=== PATIENT | male | born 1935 | race Caucasian/White ===

== ENCOUNTER 2017-03-01 15:31 | Emergency (ER) | payer MEDICARE, OTHER ==
[~2017-03-01] VITALS: Ht 170.2 cm; Wt 80.6 kg
[~2017-03-01 15:31] MED LIST: ASPI81TA2 PO; DOCU-139 PO; FENO145T PO; FERR-67 PO; HYDR-2164 PO; HYDR200T4 PO; LEVO25TA9 PO; LISI-621 PO; MAGN400T26 PO; METH750T89 PO; METO25TA41 PO; MISO200T4 PO; MULT-806 PO; NITR0.4T38 SL; PANT40TA27 PO; POTA10TA14 PO; RANI-197 PO; SUCR1TAB PO
[2017-03-01 15:34] VITALS: Ht 170.2 cm; Wt 80.6 kg
--- OUTSIDE RECORDS SUMMARY | 2017-03-01 15:36 | XMS REPORT | Continuity of Care Document ---
Author Author [facility] Organization [facility] Address Unknown Phone Unavailable Support Name Relationship Address Phone HANNY RAM DO Caregiver [address] [place] [address] Unavailable HANNY RAM DO Caregiver [address] [place] [address] Unavailable AYESHA MAO Next Of Kin [address] [facility] [place], [place] [id number] Insurance Providers Guarantor Huy Burgos Address [address] [place] [address] Email [email or web address] Medicare Policy Number [id number] Subscriber's Name Huy Burgos Relationship 18 Self Effective Date 01 [employer] Medicare Sup Policy Number [id number] Subscriber's Name Huy Burgos Relationship 18 Self Advance Directives Directive Response Recorded Date/Time Advanced Directives Type Living Will DPOA for Healthcare 05/23/14 7:[address]am Dr Padilla Resuscitation Status Full Code, unverified 10/13/16 2:01pm Resuscitation Documents on File Yes 10/15/16 11:49am DPOA for Healthcare Only Yes 10/15/16 11:49am Living Will Yes 10/15/16 11:49am Advanced Directive or Resuscitation Comments FULL CODE 10/15/16 11:49am Advance Directive Consult Information Given 10/15/16 1:50pm Problems Active Problems Medical Problem Onset Date Status CAD (coronary artery disease) Unknown Acute Dysphagia Unknown Acute Gastric mass Unknown Acute Surgical Problem Onset Date Status Status post coronary artery stent placement Unknown Acute Past Problems Medical Problem Onset Date Abrasion, shoulder without infection Unknown Medications Current Home Medications Medication Dose Units Route Directions Days Qty Instructions Start Date Aspirin 81 Mg Tab.chew 81 Mg Oral Daily 10/04/15 Docusate Sodium (Stool Softener) 100 Mg Capsule 100 Mg Oral Daily 03/08/13 Fenofibrate (Tricor) 145 Mg Tablet 145 Mg Oral Give With Breakfast 10/06/15 Ferrous Sulfate (Iron Supplement) 325 Mg Tablet 325 Mg Oral Daily 03/03/16 Hydrochlorothiazide 25 Mg Tablet 25 Mg Oral Daily 02/18/12 Hydroxychloroquine Sulfate 200 Mg Tablet 400 Mg Oral Daily Levothyroxine Sodium 25 Mcg Tablet 25 Mcg Oral Before Breakfast 10/06/15 Lisinopril 20 Mg Tablet 20 Mg Oral Daily 10/04/15 Magnesium Oxide 400 Mg Tablet 400 Mg Oral Daily 05/23/14 Methocarbamol (Robaxin-750) 750 Mg Tablet 750 Mg Oral Bedtime Metoprolol Tartrate 25 Mg Tablet 25 Mg Oral Twice A Day 03/08/13 Misoprostol 200 Mcg Tablet 200 Mcg Oral Twice A Day 03/03/16 Multivitamins (Multivitamin) 1 Tab Tablet 1 Tab Oral Daily Nitroglycerin 0.4 Mg Tab.subl 0.4 Mg Sublingual As Needed Pantoprazole Sodium 40 Mg Tablet.dr 40 Mg Oral Before Meals Twice A Day 02/20/16 Potassium Chloride 10 Meq Tablet.er 10 Meq Oral Daily 02/20/16 Ranitidine Hcl 150 Mg Tablet 150 Mg Oral Bedtime 05/23/14 Sucralfate 1 Gm Tablet 1 G Oral Bedtime 03/03/16 Past Home Medications Medication Directions Ordered Status Acetaminophen (Tylenol) 325 Mg Tablet, Daily Prn 03/08/13 Discontinued Amlodipine Besylate (Norvasc) 10 Mg Tablet, 10 Mg Oral Daily 09/25/10 Discontinued Amlodipine Besylate (Norvasc) 5 Mg Tablet, 5 Mg Oral Daily 06/19/10 Discontinued Amlodipine Besylate (Norvasc) 5 Mg Tablet, 1 Tab Oral Daily 10/28/08 Discontinued Aspirin 325 Mg Tablet, 81 Mg Oral Daily 03/08/13 Discontinued Aspirin , 81 02/18/12 Discontinued Aspirin (Aspir 81) 81 Mg Tablet.dr, 81 Mg Oral Daily 06/19/10 Discontinued Aspirin (Analgesic) 325 Mg Tablet, 1 Tab Oral Daily 10/11/09 Discontinued Carbamazepine (Tegretol) 200 Mg Tablet, 100 Mg Oral Twice A Day 03/08/13 Discontinued Carbamazepine (Tegretol) 100 Mg Tab.chew, 100 Mg Oral Daily 09/25/10 Discontinued Carbamazepine (Tegretol) 200 Mg Tablet, 1 Tab Oral Daily 10/11/09 Discontinued Clopidogrel Bisulfate (Plavix) 75 Mg Tablet, 75 Mg Oral Daily 05/24/14 Discontinued Clopidogrel Bisulfate (Plavix) 75 Mg Tablet, 75 Mg Oral Daily 03/08/13 Discontinued Clopidogrel Bisulfate (Plavix) 75 Mg Tablet, 75 Mg Oral Daily 09/25/10 Discontinued Diclofenac , 75 02/18/12 Discontinued Diclofenac Sodium (Voltaren) 75 Mg Tablet.dr, 75 Mg Oral Twice A Day Discontinued Diclofenac Sodium (Voltaren) 75 Mg Tablet.dr, 1 Tab Oral Twice A Day Discontinued Docusate Sodium (Stool Softener) 50 Mg Capsule, 50 Mg Oral Every 2 Days 09/25 Discontinued Epital , 100 02/18/12 Discontinued Fe Fumarate/Vit C/B12-If/Fa (Foltrin Capsule) 1 Udcap Capsule, 1 Cap Oral Twice A Day 06/19/10 Discontinued Fenofibrate Nanocrystallized (Tricor) 48 Mg Tablet, 72.5 Mg Oral Daily Discontinued Fenofibrate Nanocrystallized (Tricor) 145 Mg Tablet, 0.5 Tab Oral Daily 06/19 Discontinued Hydrochlorothiazide 25 Mg Tablet, 0.5 Tab Oral Daily 10/28/08 Discontinued Levothyroxine Sodium 25 Mcg Tablet, 25 Mcg Oral Daily 03/08/13 Discontinued Lisinopril (Prinivil) 40 Mg Tablet, 1 Tab Oral Daily 09/25/10 Discontinued Metoprolol Succinate 50 Mg Tab.sr.24h, 50 Mg Oral Twice A Day 09/25/10 Discontinued Misoprostol (Cytotec) 200 Mcg Tablet, 1 Tab Oral Twice A Day 09/25/10 Discontinued Multi Vitamin , 1 Oral 06/19/10 Discontinued Tramadol Hcl (Ultram) 50 Mg Tablet, 50 Mg Oral As Needed 09/25/10 Discontinued Tylenol , 09/25/10 Discontinued Social History Social History Problem Response Recorded Date/Time Onset Date Status Reason for Hospitalization EGD 10/15/2016 1:39pm Not Applicable Not Applicable Chewing Tobacco Status No 05/23/2014 7:25am Not Applicable Not Applicable Hx Substance Use No 10/15/2016 11:24am Not Applicable Not Applicable Hx Alcohol Use No 10/15/2016 11:24am Not Applicable Not Applicable Has the pt used tobacco in the last 12 months No 10/15/2016 11:24am Not Applicable Not Applicable Query Response Start Date Stop Date Smoking Status Never smoker Hospital Discharge Instructions Instructions: Care Instructions: I was in the hospital because (patient own words): EGD Discharge Diet: You may resume your usual diet. Discharge Activity: You may resume your usual activity. Follow Up Appointments: Follow up with Dr. Ram as instructed. You can call his office for any questions or concerns. Pending Lab / Results: Will be notified Patient Instructions: Do not drive, operate machinery, drink alcohol, or sign important papers for 24 hours. Expected Signs/Symptoms: You may have some gas discomfort. Notify Physician If: Contact Dr. Ram if you have a fever over 101 degrees, severe abdominal pain, or severe rectal bleeding. During Business Hours:: During office hours, call Dr. Ram's office at [phone]. After Business Hours:: After hours, please call [facility] at [phone] and have the cathead operator page Dr. Ram or the covering physician. Pain Management/Treatment: You should not have significant pain following the procedure. Wound/Incision Care: No wound care required. Condition at time of discharge: Good Plan of Care Discharge Date 10/15/16 2:18pm Prescriptions See Medication Section Functional Status No functional status results. Allergies, Adverse Reactions, Alerts Allergen Type Severity Reaction Status Last Updated ciprofloxacin HCl Allergy Unknown RASH Active 03/03/16 terbinafine HCl Allergy Intermediate RASH Active 03/03/16 Penicillin Allergy Unknown HIVES Active 03/03/16 Sulfa (Sulfonamide Antibiotics) Allergy Unknown Active 03/03/16 Hydrocortisone Allergy Unknown OINTMENT CAUSED RASH Active 03/03/16 Erythromycin base Allergy Unknown Active 03/03/16 Chloramphenicol Allergy Unknown Active 03/03/16 Neomycin Allergy Unknown Active 03/03/16 Bacitracin Allergy Unknown Active 03/03/16 gramicidin D Allergy Unknown Active 03/03/16 Ciprofloxacin Allergy Unknown RASH Active 03/03/16 Metronidazole Allergy Unknown Active 03/03/16 Gabapentin Allergy Unknown Active 03/03/16 Pramoxine Allergy Unknown Active 03/03/16 Polymyxin b Allergy Unknown Active 03/03/16 Cefadroxil Allergy Unknown Active 03/03/16 Celecoxib Allergy Unknown HIVES Active 03/03/16 Immunizations Query Response on File Recorded Date/Time Hx Influenza Vaccination Y 201510/15/16 11:24am Hx Pneumococcal Vaccination Y fall 201310/15/16 11:24am Hx Influenza Vaccination Y 201510/15/16 11:24am Hx Tetanus Diptheria Y 07/14/12 04/04/13 7:27am Vital Signs Acute Vital Signs Vital Response Date/Time Temperature (Fahrenheit) 97.5 deg F (96.8 - 99.1) 10/15/2016 2:05pm Temperature (Calculated Celsius) 36.61527 degrees C (36.0 - 37.3) 10/15/2016 2:05pm Temperature Source Oral 10/15/2016 2:05pm Pulse Rate (adult) 69 bpm (60 - 100) 10/15/2016 2:05pm Respiratory Rate 16 breaths/min (10 - 20) 10/15/2016 2:05pm O2 Sat by Pulse Oximetry 96 % (90 - 100) 10/15/2016 2:05pm Oxygen Delivery Method Room Air 10/15/2016 1:15pm Oxygen Delivery Method Room Air 10/15/2016 2:05pm Oxygen Flow Rate 3.00 L/min 10/15/2016 1:07pm Blood Pressure 168/78 mm Hg 10/15/2016 2:05pm Blood Pressure Source Automatic Cuff 10/15/2016 2:05pm Height (Feet) 5 feet 10/15/2016 11:09am Height (Inches) 8.00 inches 10/15/2016 11:09am Weight (Kilograms) 81.500 kg 10/15/2016 11:09am Body Mass Index (BMI) 27.3 10/15/2016 11:09am Results No known relevant diagnostic tests, laboratory data and/or discharge summary. Procedures Procedure Status Date Provider(s) Esophagogastroduodenoscopy (EGD) with closed biopsy Completed 10/15/16 HANNY RAM DO Encounters Encounter Location Arrival/Admit Date Discharge/Depart Date Attending Provider Departed [facility] 10/15/16 10:57am 10/15/16 2 :18pm HANNY RAM DO
--- OUTSIDE RECORDS SUMMARY | 2017-03-01 15:36 | XMS REPORT | Continuity of Care Document ---
Author Author [facility] Organization [facility] Address Unknown Phone Unavailable Allergies Active Description Code Type Severity Reaction Onset Reported/Identified Relationship to Patient Clinical Status Yes NKDA N/A N/A Yes CeleBREX NKMA N/A N/A 11/05/2014 Yes Chloromycetin NKMA N/A N/A 11/05/2014 Yes ciprofloxacin NKMA N/A [id number] 11/05/2014 Yes doxycycline NKMA N/A N/A 11/05/2014 Yes Duricef NKMA N/A N/A 11/05/2014 Yes erythromycin NKMA N/A N/A 11/05/2014 Yes hydrocortisone NKMA N/A N/A 11/05/2014 Yes LamISIL Topical NKMA N/A N/A 11/05/2014 Yes metronidazole NKMA N/A N/A 11/05/2014 Yes neomycin topical NKMA N/A N/A 11/05/2014 Yes penicillin NKMA N/A N/A 11/05/2014 Yes pramoxine topical NKMA N/A N/A 11/05/2014 Yes sulfamethoxazole-trimethoprim NKMA N/A N/A 11/05/2014 Yes CeleBREX NKMA N/A N/A 11/05/2014 Yes Chloromycetin NKMA N/A N/A 11/05/2014 Yes ciprofloxacin NKMA N/A [id number] 11/05/2014 Yes doxycycline NKMA N/A N/A 11/05/2014 Yes Duricef NKMA N/A N/A 11/05/2014 Yes erythromycin NKMA N/A N/A 11/05/2014 Yes hydrocortisone NKMA N/A N/A 11/05/2014 Yes LamISIL Topical NKMA N/A N/A 11/05/2014 Yes metronidazole NKMA N/A N/A 11/05/2014 Yes neomycin topical NKMA N/A N/A 11/05/2014 Yes penicillin NKMA N/A N/A 11/05/2014 Yes pramoxine topical NKMA N/A N/A 11/05/2014 Yes sulfamethoxazole-trimethoprim NKMA N/A N/A 11/05/2014 Yes ethyl chloride topical Other N/A [id number] 11/14/2014 Yes gabapentin NKMA N/A rash 11/14/2014 Yes ethyl chloride topical 403 N/A [id number] 11/14/2014 Yes gabapentin NKMA N/A rash 11/14/2014 Yes BACTRIM 11456 2 Skin Rashes/Hives 05/08/2016 Yes CELEBREX 82077 2 Skin Rashes/Hives 05/08/2016 Yes CHLOROMYCETIN 66499 2 Skin Rashes/Hives 05/08/2016 Yes DURICEF 46677 2 Skin Rashes/Hives 05/08/2016 Yes ERYTHROMYCIN 19164 2 Skin Rashes/Hives 05/08/2016 Yes ETHYFENEDIAMINE NOCHK 2 Skin Rashes/Hives 05/08/2016 Yes ETHYLENEDIAMINE 37208 2 Skin Rashes/Hives 05/08/2016 Yes GABAPENTIN 21822 2 Skin Rashes/Hives 05/08/2016 Yes HYDROCORTISONE NOCHK 2 Skin Rashes/Hives 05/08/2016 Yes LAMISIL 13011 2 Skin Rashes/Hives 05/08/2016 Yes METRONIDAZOLE HCL 49424 2 Skin Rashes/Hives 05/08/2016 Yes NEOMYCIN NOCHK 2 Skin Rashes/Hives 05/08/2016 Yes [id number] FORMALDEHYDE RESIN NOCHK 2 Skin Rashes/ Hives 05/08/2016 Yes P-tert Butylphenol NOCHK 2 Skin Rashes/Hives 05/08/2016 Yes PENICILLIN 22206 2 Skin Rashes/Hives 05/08/2016 Yes PRAMOXINE W/HC 57961 2 Skin Rashes/Hives 05/08/2016 Medications Medication Packaging Start Date Stop Date Route Dosage Sig [id number] 03/23/2015 ORAL daily SODIUM CHLORIDE 0.9% 10ML FLUSH SYRINGE SYR 05/10/20162016 IVP BID&0900,2100 LIDOCAINE 5% PATCH PAT 05/10/2016 05/10/2017 TD Q12H&0900, 2100 POLYETHYLENE GLYCOL 17GM PKT PKT 05/10/2016 05/10/2017 PO QD& 0900 DOCUSATE SODIUM 100MG CAPSULE CAP 05/10/2016 05/10/2017 PO BID& 0900,2100 SODIUM CHLORIDE PF 0.9% 10ML INJ VL 05/10/2016 05/10/2016 IVP ONCE LACTATED RINGERS 1000 ML IV SOLN BAG 05/10/2016 05/10/2016 IV ONCE SODIUM CHLORIDE 0.9% 1000ML IRRIG SOLN EA 05/10/20162015 IRR ONCE ceFAZolin 1GM VIAL VL 05/10/2016 05/10/2016 IVP ONCE BUPIVACAINE W/ EPI 0.25% INJ [10 ML] VL 05/10/2016 05/10/2016 ID ONCE VANCOMYCIN 1GM INJ VL 05/10/2016 05/10/2016 PB Q12H&0900,2100 LACTATED RINGERS 1000 ML IV SOLN BAG 05/10/2016 05/10/2016 IV PRE-OP ceFAZolin 1GM VIAL VL 05/10/2016 05/10/2016 IV PRE-OP VANCOMYCIN 1GM INJ VL 05/10/2016 05/10/2016 IV PRE-OP fentaNYL 100 MCG/2ML INJ AMP 05/10/2016 05/10/2016 IV PRE-OP fentaNYL 100 MCG/2ML INJ AMP 05/10/2016 05/10/2016 IV ONCE fentaNYL 250 MCG/5ML INJ AMP 05/10/2016 05/10/2016 IV ONCE * Ready to Reconcile EA 05/10/2016 05/10/2016 PO ASDIR SUCCINYLCHOLINE 100MG/5ML SYRINGE [COMPOUND] DOS 05/10/2016 IVP ONCE EPHEDRINE 20MG/2ML SYRINGE [COMPOUND] DOS 05/10/20162015 IVP ONCE LIDOCAINE 2% SYRINGE [100MG/5ML] SYR 05/10/2016 05/10/2016 IVP ONCE DEXAMETHASONE 10MG/1ML VIAL VL 05/10/2016 05/10/2016 IVP ONCE PROPOFOL 200MG/20ML INJ VL 05/10/2016 05/10/2016 IVP ONCE ONDANSETRON 4MG/2ML INJ VL 05/10/2016 05/10/2016 IVP ONCE ROCURONIUM 50MG/5ML INJ VL 05/10/2016 05/10/2016 IVP ONCE hydroMORPHONE 2MG/1ML INJ ML 05/10/2016 05/10/2016 IV ONCE hydroMORPHONE 2MG/1ML INJ ML 05/10/2016 05/10/2016 IV POST-OP hydroMORPHONE 2MG/1ML INJ ML 05/10/2016 05/10/2016 IV ONCE *CLOBETASOL 0.05% TOPICAL SOLUTION 05/10/2016 05/10/2017 TOP QD&0900 *FENOFIBRATE 145MG TABLET TAB 05/10/2016 05/11/2016 PO QD&0900 *HYDROXYCHLOROQUINE 200MG TABLET TAB 05/10/2016 05/10/2017 PO BID&0900,2100 *LEVOTHYROXINE 25 MCG TABLET TAB 05/10/2016 05/10/2017 PO QD& 0900 *METOPROLOL TARTRATE 25MG TABLET TAB 05/10/2016 05/10/2017 PO QD&0900 *amLODIPine 10MG TABLET TAB 05/10/2016 05/10/2017 PO QD&0900 *NITROGLYCERIN SL 0.4MG TABLET TAB 05/10/2016 05/10/2017 SL PRN *SUCRALFATE 1GM TABLET TAB 05/10/2016 05/10/2017 PO HS&2200 *PANTOPRAZOLE 40MG TABLET TAB 05/10/2016 05/10/2017 PO BID&0900 ,2100 *MISOPROSTOL 200MCG TABLET TAB 05/10/2016 05/10/2017 PO BID& 0900,2100 *LISINOPRIL 20MG TABLET TAB 05/10/2016 05/10/2017 PO QD&0900 *carBAMazepine 200MG TABLET TAB 05/10/2016 05/10/2017 PO QD& 0900 SODIUM CHLORIDE 0.9% W/ KCL 20MEQ 1000ML IV SOLN BAG 05/10/2016 05/12/2016 IV 100ML/HR LORazepam 0.5MG TABLET TAB 05/10/2016 05/10/2017 PO Q4HPRN HYDROcodone/ACETAMINOPHEN 5-325 MG TABLET TAB 05/10/20162016 PO T9QHTGY CYCLOBENZAPRINE 10 MG TABLET TAB 05/10/2016 05/10/2017 PO K9ZRNBN MAGNESIUM HYDROXIDE 2400MG/30ML SUSP EA 05/10/2016 05/10/2017 PO PRN BISACODYL 10MG SUPPOS. SUP 05/10/2016 05/10/2017 OK* PRN BISACODYL 5MG TABLET TAB 05/10/2016 05/10/2017 PO PRN MORPHINE 30 MG / 30 ML PRESBYTERIAN CLERGY SYRINGE SYR 05/10/2016 05/12/2016 IV PRN METOCLOPRAMIDE 10MG/2ML INJ VL 05/10/2016 05/10/2017 IVP I6TMRGMC SODIUM CHLORIDE 0.9% 10ML FLUSH SYRINGE SYR 05/10/20162016 IVP PRN SODIUM CHLORIDE 0.9% 5ML FLUSH SYRINGE SYR 05/10/20162016 IVP PRN CEPACOL (BENZOCAINE/MENTHOL) LOZENGE MING 05/10/2016 05/10/2017 BC Q4HPRN TEMAZEPAM 15MG CAPSULE CAP 05/10/2016 05/10/2017 PO HSPRNI& 2200 FAMOTIDINE 20 MG TABLET TAB 05/10/2016 05/10/2017 PO BIDPRNN diphenhydrAMINE 50MG/1ML INJ VL 05/10/2016 05/10/2017 IVP Q6HPRN ACETAMINOPHEN 325MG TABLET TAB 05/10/2016 05/10/2017 PO Q4HPRN PHENOL 1.4% THROAT SPRAY [118ML] EA 05/10/2016 05/10/2017 PO PRN VANCOMYCIN 1GM INJ VL 05/10/2016 05/11/2016 PB Q12H&0000,1200 METOCLOPRAMIDE 10MG TABLET TAB 05/10/2016 05/10/2016 PO Q6H& 0000,0600,1200,1800 METOCLOPRAMIDE 10MG TABLET TAB 05/11/2016 05/11/2016 PO ONCE METOCLOPRAMIDE 10MG TABLET TAB 05/12/2016 05/12/2017 PO [id number] *FENOFIBRATE 145MG TABLET TAB 06/07/2016 05/10/2016 PO QD&0900 *HYDROXYCHLOROQUINE 200MG TABLET TAB 06/07/2016 05/10/2016 PO BID&0900,2100 *LEVOTHYROXINE 25 MCG TABLET TAB 06/07/2016 05/10/2016 PO QD& 0900 *METOPROLOL TARTRATE 25MG TABLET TAB 06/07/2016 05/10/2016 PO QD&0900 *amLODIPine 10MG TABLET TAB 06/07/2016 05/10/2016 PO QD&0900 *MAGNESIUM OXIDE 400MG TABLET TAB 06/07/2016 06/07/2017 PO QD& 0900 *MULTIVITAMIN TABLET TAB 06/07/2016 06/07/2017 PO QD&0900 *RANITIDINE 150MG TABLET TAB 06/07/2016 05/10/2016 PO QD&0900 *POTASSIUM CHLORIDE 10MEQ TABLET TAB 06/07/2016 06/07/2017 PO QD&0900 *MISOPROSTOL 200MCG TABLET TAB 06/07/2016 05/10/2016 PO BID& 0900,2100 *LISINOPRIL 20MG TABLET TAB 06/07/2016 05/10/2016 PO QD&0900 *HYDROCHLOROTHIAZIDE 25MG TABLET TAB 06/07/2016 06/07/2017 PO QD&0900 *FERROUS SULFATE 325MG TABLET TAB 06/07/2016 06/07/2017 PO QD& 0900 *CLOPIDOGREL 75MG TABLET TAB 06/07/2016 06/07/2017 PO QD&0900 *carBAMazepine 100MG TABLET TAB 06/07/2016 05/10/2016 PO QD& 0900 *ASPIRIN EC 81MG TABLET TAB 06/07/2016 06/07/2017 PO QD&0900 *OTC/HERBAL SUPPLEMENTS EA 06/07/2016 05/10/2016 PO ASDIR * DONT RECONCILE--CHANGE PENDING EA 06/07/2016 05/10/2016 PO PRN *NITROGLYCERIN SL 0.4MG TABLET TAB 06/07/2016 05/10/2016 SL PRN *CLOBETASOL 0.05% TOPICAL SOLUTION 06/09/2016 05/10/2016 TOP QD&0900 *PANTOPRAZOLE 40MG TABLET TAB 06/09/2016 05/10/2016 PO BID&0900 ,2100 *carBAMazepine 200MG TABLET TAB 06/09/2016 05/10/2016 PO QD& 0900 *DOCUSATE SODIUM 100MG CAPSULE CAP 06/09/2016 06/09/2017 PO ASDIR *SUCRALFATE 1GM TABLET TAB 06/09/2016 05/10/2016 PO HS&2200 Problems Date Dx Coded Attending Type Code Diagnosis Diagnosed By 05/19/2013 Sourav Recinos MD Admitting 789.39 ABD/PELV SWELL-SITE NEC 05/19/2013 Sourav Recinos MD Final 996.62 INFECT D/T VASC DEVICE 05/19/2013 Sourav Recinos MD Final 998.6 PERSIST POSTOP FISTULA 05/19/2013 Sourav Recinos MD External E879.0 ABN RXN-CARDIAC CATH 08/19/2013 Sourav Recinos MD Final 447.0 ACQUIRED AV FISTULA 08/19/2013 Sourav Recinos MD Admitting 729.5 PAIN IN LIMB 08/19/2013 Sourav Recinos MD Admitting 782.3 EDEMA 08/19/2013 Sourav Recinos MD Admitting 789.30 ABD/PELV SWELL-SITE NOS 11/09/2014 Claudia King 719.45 PAIN IN JOINT INVOLVING PELVIC REGION AND THIGH 11/09/2014 Claudia King Reason 873.0 OPEN WOUND OF SCALP, WITHOUT MENTION OF COMPLICATION 11/09/2014 Claudia King E885.9 FALL FROM OTHER SLIPPING, TRIPPING, OR STUMBLING 11/09/2014 Claudia King V58.63 Long-Term (Current) Use of Antiplatelets/ Antithrombotics 11/09/2014 Claudia King Reason 873.0 OPEN WOUND OF SCALP, WITHOUT MENTION OF COMPLICATION 05/12/2016 ROXY GONCALVES D62 Acute posthemorrhagic anemia 05/12/2016 ROXY GONCALVES E03.9 Hypothyroidism, unspecified 05/12/2016 ROXY GONCALVES E78.5 Hyperlipidemia, unspecified 05/12/2016 ROXY GONCALVES G47.33 Obstructive sleep apnea (adult) (pediatr 05/12/2016 ROXY GONCALVES I12.9 Hypertensive chronic kidney disease with 05/12/2016 ROXY GONCALVES I25.10 Atherosclerotic heart disease of [place] 05/12/2016 ROXY GONCALVES I44.0 Atrioventricular block, first degree 05/12/2016 ROXY GONCALVES K21.9 Gastro-esophageal reflux disease without 05/12/2016 ROXY GONCALVES M25.78 Osteophyte, vertebrae 05/12/2016 ROXY GONCALVES M48.06 Spinal stenosis, lumbar region 05/12/2016 ROXY GONCALVES M53.2X6 Spinal instabilities, lumbar region 05/12/2016 ROXY GONCALVES N18.3 Chronic kidney disease, stage 3 (moderat 05/12/2016 ROXY GONCALVES Z79.01 residential (current) use of anticoagulant Procedures Code [place] [address] Simple repair of superficial wounds of scalp, neck, axillae, external genit 11/05/2014 [id number] Release Lumbar Nerve, Open Approach ROXY GONCALVES 05/10/2016 [id number] Fusion of Lumbar Vertebral Joint, Organ Pipe Finisher ROXY GONCALVES 05/10/2016 [id number] Inspection of Lumbar Vertebral Joint, Op ROXY GONCALVES 05/10/2016 [id number] Removal of Internal Fixation Device from ROXY GONCALVES 05/10/2016 Results Encounters ACCT No. Visit Date/Time Discharge Status Pt. Type Provider Facility Loc./Unit Complaint [id number] 08/19/2013 07:20:00 2012 23:59:59 CLS Outpatient Sourav Recinos MD [facility] [id number] 05/19/2013 09:45:00 2012 23:59:59 CLS Outpatient Sourav Recinos MD [facility]
--- NOTE | 2017-03-01 15:47 | ERPDOC ---
Departure Disposition Decision Date: Mar 01, 2017 Disposition Decision Time: 17:22 Disposition: 01 DISCHARGED HOME, SELF-CARE Impression Impression Impression: Primary Impression: Diarrhea Diarrhea type: unspecified type Qualified Codes: R19.7 - Diarrhea, unspecified Severity: Moderate Condition: Stable Seen By: Physician only Referrals: HANNY RAM DO (Family) Patient Instructions: Acute Diarrhea (ED) Problems/Meds/Labs Reviewed?: Yes Medications reviewed and manag: Yes Additional Instructions: If continuing to have problems on Friday follow-up with Dr. Ram, otherwise continue to use the antidiarrheals at home, may take up to 6 pills in a 24-hour period Follow up care ordered?: Yes Mental Status: Alert, Oriented HPI - Abdominal Pain General Chief Complaint: Nausea,Vomiting,Diarrhea Stated Complaint: DIARRHEA Time Seen by Provider: 15:46 Source: patient, family History/Exam Limitations: no limitations HPI - Abdominal Pain Initial Comments Patient is an 82-year-old male presents emergency room for evaluation of diarrhea, weakness. Patient started having diarrhea 2 days ago, having no nausea no abdominal pain still eating, significant diarrhea has taken for antidiarrheal pills in the last 2 days, last dose at 8:00 this morning. Patient 's had continued diarrhea today so decided present to the ER with increasing weakness. Occurred At: home Onset: Gradual, Getting worse Duration: other (2 days) Allergies: Coded Allergies: terbinafine HCl (Verified Allergy, Intermediate, RASH, 03/01/17) TOPICAL CREAM Penicillins (Verified Allergy, Unknown, HIVES, 03/01/17) Sulfa (Sulfonamide Antibiotics) (Verified Allergy, Unknown, 03/01/17) bacitracin (Verified Allergy, Unknown, 03/01/17) cefadroxil (Verified Allergy, Unknown, 03/01/17) celecoxib (Verified Allergy, Unknown, HIVES, 03/01/17) chloramphenicol (Verified Allergy, Unknown, 03/01/17) ciprofloxacin (Verified Allergy, Unknown, RASH, 03/01/17) ciprofloxacin HCl (Verified Allergy, Unknown, RASH, 03/01/17) doxycycline (Verified Allergy, Unknown, CHEST PAIN, 03/01/17) erythromycin base (Verified Allergy, Unknown, 03/01/17) gabapentin (Verified Allergy, Unknown, 03/01/17) gramicidin D (Verified Allergy, Unknown, 03/01/17) hydrocortisone (Verified Allergy, Unknown, OINTMENT CAUSED RASH, 03/01/17) metronidazole (Verified Allergy, Unknown, 03/01/17) neomycin (Verified Allergy, Unknown, 03/01/17) polymyxin B (Verified Allergy, Unknown, 03/01/17) pramoxine (Verified Allergy, Unknown, 03/01/17) sulfamethoxazole (Verified Allergy, Unknown, 03/01/17) trimethoprim (Verified Allergy, Unknown, 03/01/17) Uncoded Allergies: METROMIDOZOLIE (Allergy, Unknown, 03/01/17) Past History Past Medical History Metabolic: cancer, hypertension, hypothyroidism Cardiac: CAD Musculoskeletal: back pain Surgical History General: other Cardiac: cardiac stent Family History Family PMH: FOUND: other Vaccines Hx Influenza Vaccination: Yes (2015) Hx Pneumococcal Vaccination: Yes (FALL 2013) Hx Tetanus Diptheria: Yes (07/14/12) Review of Systems Constitutional Constitutional: weakness, DENIES: appetite decrease, chills, dizziness, fever Eyes Vision: DENIES: double vision, loss of visual abebe ENMT Sinuses: DENIES: congestion, rhinorrhea Mouth/Throat: DENIES: scratchy throat, sore throat Cardiovascular Cardiac: DENIES: chest pain, dyspnea on exertion Pulmonary Respiratory: DENIES: cough, dyspnea, sputum, tachypnea GI Upper Abdomen: DENIES: nausea, pain, vomiting Lower Abdomen: diarrhea, DENIES: constipation, pain General: DENIES: urgency Musculoskeletal General: DENIES: cramps, pain, weakness Integumentary Skin: DENIES: color change, itching, rash Endocrine Endocrine: DENIES: heat/cold intolerance Hematologic/Lymphatic Hematologic/Lymphatic: DENIES: anemia Physical Exam General General Nourishment: well nourished, well developed General Body Habitus: well groomed Vitals and Pain Weight: Kilograms: 80.600 Height (feet): 5 Height (inches): 7.00 Triage Pain Scale: RN VS reviewed by Provider: Yes Eyes (brief) Eyes Brief: found: EOMI ENMT (brief) ENMT Brief: FOUND: mucosa moist, normal dentition, NOT FOUND: nasal erythema, pharnyx erythema, tonsillar deviation Neck (brief) Neck: NOT FOUND: adenopathy, spasm, tenderness Respiratory (brief) Respiratory: FOUND: clear all abebe, equal bilaterally, NOT FOUND: rales, wheezes Cardiovascular (brief) Cardiac: FOUND: regular rate, regular rhythm Capillary Refill: <2 sec Abdomen (brief) Abdominal Brief: FOUND: bowel normo active x4, soft, NOT FOUND: distended, tender Lymphatic (brief) Lymphatic Brief: NOT FOUND: adenopathy Musculoskeletal (brief) Musculoskeletal Brief: NOT FOUND: spasm, tenderness Integumentary (brief) Integumentary Brief: FOUND: dry, pink, warm, NOT FOUND: rash Neurologic (brief) Neurological Brief: FOUND: CN w/o gross def to obs, motor-no gross deficits, sensory-no gross deficits Psychiatric (brief) Psychiatric Brief: FOUND: alert, oriented Differential Diagnoses Considering: Biliary Colic, Bowel Obstruction, Cholecystitis, C-Difficule Colitis, Dehydration, Diverticulitis, Food Poisoning, Gastroenteritis, Hyponatremia, Hypokalemia, Hypoglycemia, Ischemic Bowel, UTI, Sigmoid Volvulus, Cecal Volvulus Progress Results/Orders Orders Procedure Category Date Status Time Iv Lock (Ed Only) EDM 03/01/17 Transmitted 15:58 Cbc W/Auto LAB 03/01/17 Complete Diff-Reflex Manual 15:58 Cmp - Comprehensive LAB 03/01/17 Complete Metabolic 15:58 Lipase LAB 03/01/17 Complete 15:58 Ua, Dip Wreflex LAB 03/01/17 Complete Microsc & Visiting Professor 15:58 Normal Saline (Normal PHA 03/01/17 Complete Saline Iv) 16:00 Lab Results Laboratory Tests Test 03/01/17 16:20 03/01/17 16:55 White Blood Count 6.5T/MM3 Red Blood Count 4.52M/MM3 Hemoglobin 14.0GM/DL Hematocrit 40.0% Mean Corpuscular Volume 88.5UM3 Mean Corpuscular Hemoglobin 31.0UUG Mean Corpuscular Hemoglobin Concent 35.0GM/DL RDW Standard Deviation 47.2FL Platelet Count 206T/MM3 Mean Platelet Volume 9.4UM3 Immature Granulocyte % (Auto) 0.2% Neutrophils (%) (Auto) 61.7% Lymphocytes (%) (Auto) 22.2% Monocytes (%) (Auto) 12.3% Eosinophils (%) (Auto) 3.4% Basophils (%) (Auto) 0.2% Absolute Immature Granulocyte (auto 0.01T/MM3 Absolute Neutrophils (auto) 4.0T/MM3 Absolute Lymphocytes (auto) 1.4T/MM3 Absolute Monocytes (auto) 0.8T/MM3 Absolute Eosinophils (auto) 0.2T/MM3 Absolute Basophils (auto) 0.0T/MM3 Turbidity < 20 Sodium Level 139MEQ/L Potassium Level 4.1MEQ/L Chloride Level 109MEQ/L Carbon Dioxide Level 15MEQ/L Anion Gap 15MEQ/L Blood Urea Nitrogen 32.0MG/DL Creatinine 1.3MG/DL Glomerular Filtration Rate Calc 53 BUN/Creatinine Ratio 25RATIO Glucose Level 85MG/DL Calculated Osmolality 274MOSM/KG Calcium Level 9.3MG/DL Total Bilirubin 0.70MG/DL Icterus Index < 2 Aspartate Amino Transf (AST/SGOT) 48U/L Alanine Aminotransferase (ALT/SGPT) 39U/L Alkaline Phosphatase 57U/L Total Protein 7.1G/DL Albumin 3.8G/DL Globulin 3.3G/DL Albumin/Globulin Ratio 1.2RATIO Lipase 91U/L Chemistry Specimen Hemolysis < 15 Urine Collection Type Voided-not cc-midstr Urine Color Yellow Urine Turbidity Clear Urine pH 5.0 Urine Specific [place] 1.025 Urine Protein Trace Urine Glucose (UA) Negative Urine Ketones Negative Urine Blood Negative Urine Nitrite Negative Urine Bilirubin Negative Urine Urobilinogen 0.2EU/DL Urine Leukocyte Esterase Negative Urinalysis Comment Microscopic not ind. Medications Current ED Medications Sodium Chloride (Normal Saline IV) 1,000 ml @ 999 mls/hr Q1H1M ONCE IV Last administered on 03/01/17t 16:17; Start 03/01/17 at 16:00; Stop 03/01/17 at 17:00; Status DC Progress Progress Patient's had no diarrhea while in the emergency department, laboratories are noncontributory. Patient feeling better after fluids. We'll discharge patient home continue antidiarrheals as needed follow-up with PCP if not improved by Friday MADELYN VALVERDE MD Mar 01, 2017 15:47
[2017-03-01] MEDS ORDERED: LISI40TA4 PO (15:53)
[2017-03-01] MEDS ORDERED: TRIA15CR4 TOP (15:53)
--- OUTSIDE RECORDS SUMMARY | 2017-03-01 15:55 | XMS REPORT | Continuity of Care Document ---
Author Author [facility] Organization [facility] Address Unknown Phone Unavailable Allergies Active Description Code Type Severity Reaction Onset Reported/Identified Relationship to Patient Clinical Status Yes NKDA N/A N/A Yes CeleBREX NKMA N/A N/A 11/05/2014 Yes Chloromycetin NKMA N/A N/A 11/05/2014 Yes ciprofloxacin NKMA N/A [id number] 11/05/2014 Yes doxycycline NKMA N/A N/A 11/05/2014 [...] N/A N/A 11/05/2014 Yes ciprofloxacin NKMA N/A [id number] 11/05/2014 Yes doxycycline NKMA N/A N/A 11/05/2014 [...] 11/05/2014 Yes ethyl chloride topical Other N/A [id number] 11/14/2014 Yes gabapentin NKMA N/A rash 11/14/2014 Yes ethyl chloride topical 403 N/A [id number] 11/14/2014 Yes gabapentin NKMA N/A rash 11/14/2014 Yes BACTRIM 78979 2 Skin Rashes/Hives 05/08/2016 Yes CELEBREX 05180 2 Skin Rashes/Hives 05/08/2016 Yes CHLOROMYCETIN 92913 2 Skin Rashes/Hives 05/08/2016 Yes DURICEF 07943 2 Skin Rashes/Hives 05/08/2016 Yes ERYTHROMYCIN 94478 2 Skin Rashes/Hives 05/08/2016 Yes ETHYFENEDIAMINE NOCHK 2 Skin Rashes/Hives 05/08/2016 Yes ETHYLENEDIAMINE 03926 2 Skin Rashes/Hives 05/08/2016 Yes GABAPENTIN 94896 2 Skin Rashes/Hives 05/08/2016 Yes HYDROCORTISONE NOCHK 2 Skin Rashes/Hives 05/08/2016 Yes LAMISIL 22243 2 Skin Rashes/Hives 05/08/2016 Yes METRONIDAZOLE HCL 72486 2 Skin Rashes/Hives 05/08/2016 Yes NEOMYCIN NOCHK 2 Skin Rashes/Hives 05/08/2016 Yes X-PTHL-OMTDYZEXAR FORMALDEHYDE RESIN NOCHK 2 Skin Rashes/ Hives 05/08/2016 Yes P-tert Butylphenol NOCHK 2 Skin Rashes/Hives 05/08/2016 Yes PENICILLIN 55030 2 Skin Rashes/Hives 05/08/2016 Yes PRAMOXINE W/HC 03699 2 Skin Rashes/Hives 05/08/2016 Medications Medication Packaging [...] HYDROcodone/ACETAMINOPHEN 5-325 MG TABLET TAB 05/10/20162016 PO [id number] CYCLOBENZAPRINE 10 MG TABLET TAB 05/10/2016 05/10/2017 PO [id number] MAGNESIUM HYDROXIDE 2400MG/30ML SUSP EA 05/10/2016 05/10/2017 PO PRN BISACODYL 10MG SUPPOS. SUP 05/10/2016 05/10/2017 AZ* PRN BISACODYL 5MG TABLET TAB 05/10/2016 05/10/2017 PO PRN MORPHINE 30 MG / 30 ML MOHS SURGEON SYRINGE SYR 05/10/2016 05/12/2016 IV PRN METOCLOPRAMIDE 10MG/2ML INJ VL 05/10/2016 05/10/2017 IVP [id number] SODIUM CHLORIDE 0.9% 10ML FLUSH SYRINGE SYR [...] METOCLOPRAMIDE 10MG TABLET TAB 05/12/2016 05/12/2017 PO [id number] *FENOFIBRATE 145MG TABLET TAB 06/07/2016 05/10/2016 PO [...] ROXY GONCALVES I25.10 Atherosclerotic heart disease of [place] 05/12/2016 ROXY GONCALVES I44.0 Atrioventricular block, first degree 05/12/2016 ROXY GONCALVES K21.9 Gastro-esophageal reflux disease without 05/12/2016 ROXY GONCALVES M25.78 Osteophyte, vertebrae 05/12/2016 ROXY GONCALVES M48.06 Spinal stenosis, lumbar region 05/12/2016 ROXY GONCALVES M53.2X6 Spinal instabilities, lumbar region 05/12/2016 ROXY GONCALVES N18.3 Chronic kidney disease, stage 3 (moderat 05/12/2016 ROXY GONCALVES Z79.01 penitentiary (current) use of anticoagulant Procedures Code Description [place] [address] Simple repair of superficial wounds of scalp, neck, axillae, external genit 11/05/2014 [id number] Release Lumbar Nerve, Open Approach ROXY GONCALVES 05/10/2016 [id number] Fusion of Lumbar Vertebral Joint, Filter Bed Placer ROXY GONCALVES 05/10/2016 [id number] Inspection of Lumbar Vertebral Joint, Op ROXY GONCALVES 05/10/2016 [id number] Removal of Internal Fixation Device from ROXY GONCALVES 05/10/2016 Results Encounters ACCT No. Visit Date/Time Discharge Status Pt. Type Provider Facility Loc./Unit Complaint [id number] 08/19/2013 07:20:00 2012 23:59:59 CLS Outpatient Sourav Recinos MD [facility] [id number] 05/19/2013 09:45:00 2012 23:59:59 CLS Outpatient Sourav Recinos MD [facility]
--- NOTE | 2017-03-01 15:56 | NUR ---
DR DR VALVERDE AT BEDSIDE.
[2017-03-01] MEDS ORDERED: NORMAL SALINE 1,000 ML IV ONE (16:00)
--- NOTE | 2017-03-01 16:15 | NUR ---
STATUS PT RESTING CALMLY IN ROOM.
[2017-03-01 16:26] LABS: BASOPHILS % (AUTO) 0.2 % (0-2); EOSINOPHILS # (AUTO) 0.2 T/MM3 (0-0.5); EOSINOPHILS % (AUTO) 3.4 % (0-4); IMMATURE GRANULOCYTE # (AUTO) 0.01 T/MM3 (0.00-0.03); IMMATURE GRANULOCYTE % (AUTO) 0.2 % (0.0-0.5); LYMPHOCYTES # (AUTO) 1.4 T/MM3 (1-4.8); LYMPHOCYTES % (AUTO) 22.2 % (23-45); MEAN CORPUSCULAR VOLUME 88.5 UM3 (80-100); MEAN PLATELET VOLUME 9.4 UM3 (9.4-12.4); MONOCYTES # (AUTO) 0.8 T/MM3 (0-0.8); MONOCYTES % (AUTO) 12.3 % (0-9.0); NEUTROPHILS % (AUTO) 61.7 % (33-66); RED BLOOD COUNT 4.52 M/MM3 (4.50-5.90); WBC - WHITE BLOOD COUNT 6.5 T/MM3 (4.5-11.0)
[2017-03-01 16:36] LABS: ALBUMIN 3.8 G/DL (3.5-5.0); ALBUMIN/GLOBULIN RATIO 1.2 RATIO (1.1-2.2); ALKALINE PHOSPHATASE 57 U/L (38-126); ALT (SGPT) 39 U/L (21-72); ANION GAP 15 MEQ/L (5-15); AST (SGOT) 48 U/L (17-59); BUN/CREATININE RATIO 25 RATIO (6-26); CALCIUM 9.3 MG/DL (8.4-10.2); CHLORIDE 109 MEQ/L (98-107); CO2 - CARBON DIOXIDE 15 MEQ/L (22-30); CREATININE 1.3 MG/DL (0.8-1.5); GLOMERULAR FILTRATION RATE 53; GLUCOSE 85 MG/DL (75-110); LIPASE 91 U/L (23-300); POTASSIUM 4.1 MEQ/L (3.6-5); SODIUM 139 MEQ/L (134-144); TOTAL PROTEIN 7.1 G/DL (6.3-8.2)
[2017-03-01 17:04] LABS: BLOOD, URINE NEGATIVE (NEGATIVE); COLOR,URINE YELLOW (YELLOW); LEUKOCYTE ESTERASE ,URINE NEGATIVE (NEGATIVE); NITRITE,URINE NEGATIVE (NEGATIVE); UROBILINOGEN,URINE 0.2 EU/DL (NORMAL)
--- NOTE | 2017-03-01 17:30 | NUR ---
AMBULATION PT AMBULATED IN . PT STATES THAT HE DOES NOT FEEL WEAK, TOLERATES AMBULATION WELL.
[2017-03-01 17:47] VITALS: BP 153/75; PULSE 75; RESP 16; TEMP 97.8; O2SAT 97
--- NOTE | 2017-03-01 17:47 | NUR ---
DEPART AMBULATED WITH PT TO LOBBY. PT ACCOMPANIED BY DAUGHTER.
== END 2017-03-01 17:47 | disposition home or self-care (01) ==
LOC: ED 15:31
DX: R19.7 Diarrhea, unspecified (principal); R53.1 Weakness
CPT/HCPCS: 80053; 81003; 83690; 85025; 96360; 99284; J7030